=== PATIENT | male | born 1975 | race Caucasian/White ===

== ENCOUNTER 2020-07-30 08:04 | Emergency (ER) | payer MEDICAID, SELFPAY ==
[2020-07-30 08:23] VITALS: BP 135/79; PULSE 89; RESP 16; TEMP 37; O2SAT 97; BMI 31.9
[2020-07-30 08:26] VITALS: TEMP 37
--- NOTE | 2020-07-30 09:21 | CT_ITS ---
EXAMINATION: CT ABDOMEN AND PELVIS WITHOUT CONTRAST CLINICAL INFORMATION: Right-sided pain with question of renal calculi. COMPARISON: None TECHNIQUE: Multidetector volumetric imaging was performed from the superior aspect of the liver through the pubic symphysis. Sagittal and coronal reformatted images were obtained on the technologist's workstation. This CT examination was performed using dose optimization techniques as appropriate, variously including the following: Automated exposure control. Adjustment of mA and/or kV according to patient size (this includes techniques or standardized protocols for targeted exams where dose is matched to indication/reason for exam; i.e. extremities or head). Use of iterative reconstruction technique. DLP: 595 mGy-cm FINDINGS: LUNG BASES: Multiple slightly irregular rounded densities are seen at the lung bases. The best example is probably in the left lower lobe (series 4 image 20). This has slightly irregular borders. There is a pleural-based area in the lingula which appears more like a peripheral consolidation containing air bronchograms (series 3 image 4). Differential diagnosis would include inflammatory, infectious and neoplastic considerations, favor the former. LIVER, GALLBLADDER, AND BILIARY TREE: The liver is normal in size, shape, and attenuation. No focal hepatic lesion or biliary ductal dilatation is present. The gallbladder is unremarkable with no evidence of radiopaque gallstones, gallbladder wall thickening, or obvious pericholecystic inflammatory changes. PANCREAS: Unremarkable. SPLEEN: Unremarkable. ADRENAL GLANDS: Unremarkable. KIDNEYS AND URETERS: The kidneys are normal in size, shape, and attenuation. No hydronephrosis, hydroureter, or calculi seen. No perinephric stranding. BLADDER: Unremarkable. GASTROINTESTINAL TRACT: A small hiatal hernia is present. The small and large bowel are unremarkable. The appendix is unremarkable. ABDOMINAL WALL: No significant hernia is appreciated. LYMPH NODES: No retroperitoneal lymphadenopathy. Phleboliths are noted in the pelvis. VASCULAR: Unremarkable. PELVIC VISCERA: Prostate and seminal vesicles appear normal. OSSEOUS STRUCTURES: Unremarkable. CT/CT abdomen pelvis wo con IMPRESSION: A cause for the patient's right-sided pain is not found and there is no evidence of renal calculi. Multifocal pulmonary masses are present with differential diagnosis as described above. I suspect the most likely etiology is an infectious, possibly even embolic. This does not have the typical appearance of COVID-19 disease. Short term follow up is recommended with a chest CT after a course of antibiotic therapy. This critical result was discussed with DAVID Montes at 10:15 AM on the day of the exam and it was ascertained that the content and urgency of the report was understood at the time of direct communication.
--- NOTE | 2020-07-30 09:39 | ED_ITS ---
HPI - Back Pain/Injury General Chief Complaint: Back Pain/Injury Stated Complaint: back pain Time Seen by Provider: 07/30/20 09:08 Source: patient Mode of arrival: ambulatory Limitations: language barrier ([employer] used) History of Present Illness HPI Narrative: Patient is a 45-year-old male with no significant past medical history complaining of 3 days of right lower back pain that radiates to the front of his abdomen. He states he has never had pain like this before and has never had kidney stones. He also states he has no history of back pain but he does work in a factory lifting heavy objects however he denies any injury. Denies blood in his urine, denies loss of bladder bowels denies numbness ting ling or shooting pain down his legs, denies fevers. Patient states he has been taking ibuprofen around the clock with no relief, last dose was last evening. Related Data Previous Rx's Medication Instructions Recorded levofloxacin 750 mg PO DAILY #7 tab 07/30/20 Allergies Allergy/AdvReac Type Severity Reaction Status Date / Time No Known Allergies Allergy Verified 07/30/20 09:21 Review of Systems Review of Systems: see HPI [facility] Social History Social History Alcohol intake: never Smoking Status: Never smoker Use of substances other than those prescribed or required for medical reasons: No Advance Directives: No Advance Directives Information Provided: Yes Physical Exam Vital Signs: Vital Signs: Last Vital Signs Temp 98.6 F 07/30/20 08:26 Pulse 89 07/30/20 08:23 Resp 16 07/30/20 08:23 BP 135/79 07/30/20 08:23 Pulse Ox 97 07/30/20 08:23 Body Mass Index 31.9 Const: General: cooperative, healthy appearing, comfortable, no acute distress and well developed Orientation/consciousness: patient oriented x3 HENMT: Head: Yes normal to inspection Eyes: General: appearance normal, both eyes and all related structures Neck: Neck: Yes normal visual inspection and Yes full ROM Resp: Effort & Inspection: normal respiratory effort and able to speak in complete sentences GI: Inspection: Yes obesity : General: Yes no CVA tenderness Back/Spine/Pelvis: Back: no CVA tenderness, No erythema, No warmth, No ecchymosis and No back tenderness Cervical Spine: cervical ROM normal and No Cervical spine tenderness Thoracic/Lumbar Spine: thoracic and lumbar spine normal to inspection, thoraco-lumbar ROM normal, straight leg raise negative bilaterally, No bend over test abnormal and No thoracic spinal tenderness Skin: General skin exam: no rashes or lesions noted Neuro: General: patient oriented x3 Extrem: General: Yes normal to inspection Course Course Course Narrative: 45-year-old male with no significant past medical history complaining of right-sided low back pain which radiates to the front of his abdomen. Will get UA, basic labs and CT scan to rule out kidney stones. 10:15am Dr Melvin Mack from [facility] called to discussed findings of abdominal CT, states he sees a multifocal pneumonia but no kidney stones, no hydronephrosis. Suggested treating with antibiotics and having a follow-up chest CT in a couple of weeks through his primary care provider. UA negative. MDM - Back Pain/Injury Lab Data Result diagrams: 07/30/20 09:48 07/30/20 09:48 Labs: Lab Results 07/30/20 07/30/20 07/30/20 Range/Units 09:48 09:48 Unknown WBC 6.6 (4.8-10.8) X10*3/uL RBC 5.72 (4.60-5.80) X10*6/uL Hgb 15.5 (14.0-18.0) g/dl Hct 49.2 (42-52) % MCV 86.0 (80-98) fL MCH 27.1 (27.0-33.0) pg MCHC 31.5 (31.0-36.0) g/dl RDW 13.6 (11.0-16.0) % Plt Count 131 L (160-400) X10*3/uL MPV 8.9 L (9.4-12.4) fL Immature Gran % (Auto) 0.2 (0.0-0.4) % Neut % (Auto) 51.5 (45-73) % Lymph % (Auto) 41.3 H (20-40) % Vance % (Auto) 6.0 (2-11) % Eos % (Auto) 0.8 (0-4) % Baso % (Auto) 0.2 (0-2) % Lymph # (Auto) 2.7 (1.2-4.9) X10*3/uL Vance # (Auto) 0.4 (0.1-1.2) X10*3/uL Eos # (Auto) 0.1 (0.0-0.4) X10*3/uL Baso # (Auto) 0.0 (0.0-0.2) X10*3/uL Abs Immat Gran (auto) 0.01 (0.00-0.03) X10*3/uL Absolute Neuts (auto) 3.4 (2.0-8.3) X10*3/uL Absolute Nucleated RBC 0.000 (0.0-0.012) X10*3/uL Nucleated RBC % (auto) 0.0 (0.0-0.2) /100WBC Sodium 140 (135-145) mmol/L Potassium 5.0 (3.3-5.1) mmol/l Chloride 103 (96-108) mmol/L Carbon Dioxide 30 H (22-29) mmol/L Anion Gap 12 (12-20) BUN 11 (9-16) mg/dL Creatinine 1.02 (0.5-1.4) mg/dL Estim Creat Clear Calc 98.0 Estimated GFR > 60 Random Glucose 112 (60-115) mg/dL Calcium 8.4 (8.4-10.2) mg/dL Urine Color YELLOW Urine Appearance CLEAR Urine pH 6.5 (5.0-8.0) Ur Specific Tillman 1.010 (1.005-1.025) Urine Protein NEG (NEG-TRACE) MG/DL Urine Glucose (UA) NEG (NEG) MG/DL Urine Ketones NEG (NEG) MG/DL Urine Blood NEG (NEG) Urine Nitrite NEG (NEG) Ur Leukocyte Esterase NEG (NEG) Imaging Data CT scan - abdomen: Attestation: I personally reviewed and interpreted this imaging study as follows: Radiologist's impression: [address] [address] [address] Scan Report Signed Patient: Marcos Will GMR#: [id number] : 1975Acct:[id number] Age/Sex: 45 / MADM Date: 07/30/20 Loc: HO.ED Attending Dr: Ordering Physician: LUCIANO REAVES Date of Service: 07/30/20 Procedure(s): CT abdomen pelvis wo con Accession Number(s): [id number] cc: LUCIANO REAVES~ EXAMINATION: CT ABDOMEN AND PELVIS WITHOUT CONTRAST CLINICAL INFORMATION: Right-sided pain with question of renal calculi. COMPARISON: None TECHNIQUE: Multidetector volumetric imaging was performed from the superior aspect of the liver through the pubic symphysis. Sagittal and coronal reformatted images were obtained on the technologist's workstation. This CT examination was performed using dose optimization techniques as appropriate, variously including the following: Automated exposure control. Adjustment of mA and/or kV according to patient size (this includes techniques or standardized protocols for targeted exams where dose is matched to indication/reason for exam; i.e. extremities or head). Use of iterative reconstruction technique. DLP: 595 mGy-cm FINDINGS: LUNG BASES: Multiple slightly irregular rounded densities are seen at the lung bases. The best example is probably in the left lower lobe (series 4 image 20). This has slightly irregular borders. There is a pleural-based area in the lingula which appears more like a peripheral consolidation containing air bronchograms (series 3 image 4). Differential diagnosis would include inflammatory, infectious and neoplastic considerations, favor the former. LIVER, GALLBLADDER, AND BILIARY TREE: The liver is normal in size, shape, and attenuation. No focal hepatic lesion or biliary ductal dilatation is present. The gallbladder is unremarkable with no evidence of radiopaque gallstones, gallbladder wall thickening, or obvious pericholecystic inflammatory changes. PANCREAS: Unremarkable. SPLEEN: Unremarkable. ADRENAL GLANDS: Unremarkable. KIDNEYS AND URETERS: The kidneys are normal in size, shape, and attenuation. No hydronephrosis, hydroureter, or calculi seen. No perinephric stranding. BLADDER: Unremarkable. GASTROINTESTINAL TRACT: A small hiatal hernia is present. The small and large bowel are unremarkable. The appendix is unremarkable. ABDOMINAL WALL: No significant hernia is appreciated. LYMPH NODES: No retroperitoneal lymphadenopathy. Phleboliths are noted in the pelvis. VASCULAR: Unremarkable. PELVIC VISCERA: Prostate and seminal vesicles appear normal. OSSEOUS STRUCTURES: Unremarkable. CT/CT abdomen pelvis wo con IMPRESSION: A cause for the patient's right-sided pain is not found and there is no evidence of renal calculi. Multifocal pulmonary masses are present with differential diagnosis as described above. I suspect the most likely etiology is an infectious, possibly even embolic. This does not have the typical appearance of COVID-19 disease. Short term follow up is recommended with a chest CT after a course of antibiotic therapy. Discharge Plan Discharge Clinical Impression: Multifocal pneumonia Patient Disposition: Home, Self-Care Instructions: Pneumonia (ED) Additional Instructions: As discussed with the warehouse distribution associate, it is imperative you have a follow-up chest CT a week or two after you complete your course of antibiotics. Please arrange this with your primary care provider. As discussed, what was seen on the CT scan is likely pneumonia but we need to be sure and follow-up CT scan after you finish your antibiotics is important. Prescriptions: New levofloxacin 750 mg tablet 750 mg PO DAILY Qty: 7 RF: 0 Referrals: [facility] [Primary Care Provider] - 10 days (Please be sure to follow-up within 2 weeks of finishing your antibiotics for a chest CT scan) Interventions: ED Discharge Assessment Last Done: 07/30/20 10:50 Discharge Date/Time: 07/30/20 11:07
[2020-07-30 09:55] LABS: MANUAL DIFF FLAG NO
[2020-07-30 09:58] LABS: Basophils Percent Auto 0.2 % (0-2); Eosinophils Absolute Auto 0.1 X10*3/uL (0.0-0.4); Eosinophils Percent Auto 0.8 % (0-4); Hematocrit 49.2 % (42-52); Hemoglobin 15.5 g/dl (14.0-18.0); Imm Gran Abs Auto 0.01 X10*3/uL (0.00-0.03); Imm Gran Pct Auto 0.2 % (0.0-0.4); Lymphocytes Absolute Auto 2.7 X10*3/uL (1.2-4.9); Lymphocytes Percent Auto 41.3 % (20-40); Mean Corpuscular HGB Conc 31.5 g/dl (31.0-36.0); Mean Corpuscular Hemoglobin 27.1 pg (27.0-33.0); Mean Platelet Volume 8.9 fL (9.4-12.4); Monocytes Absolute Auto 0.4 X10*3/uL (0.1-1.2); Neutrophils Absolute Auto 3.4 X10*3/uL (2.0-8.3); Neutrophils Percent Auto 51.5 % (45-73); Platelet Count 131 X10*3/uL (160-400); Red Blood Count 5.72 X10*6/uL (4.60-5.80); Red Cell Distribution Width 13.6 % (11.0-16.0); White Blood Count 6.6 X10*3/uL (4.8-10.8)
[2020-07-30] MEDS: Ketorolac Tromethamine 15 MG/ML VIAL IV (10:18)
[2020-07-30 10:20] LABS: Anion Gap 12 (12-20); Blood Urea Nitrogen 11 mg/dL (9-16); Calcium 8.4 mg/dL (8.4-10.2); Carbon Dioxide 30 mmol/L (22-29); Chloride 103 mmol/L (96-108); Estimated Glomerular Filt Rate > 60; Glucose Random 112 mg/dL (60-115); Sodium 140 mmol/L (135-145)
[2020-07-30 11:07] LABS: Glucose Urine UA NEG (NEG); Leukocyte Esterase Urine NEG (NEG); Nitrite Urine NEG (NEG); PH 6.5 (5.0-8.0); Urine Blood NEG (NEG); Urine Ketones NEG (NEG); Urine Protein NEG (NEG-TRACE)
[2020-07-30 11:08] LABS: Appearance Urine CLEAR; Color Urine YELLOW
== END 2020-07-30 11:07 | disposition home or self-care (01) ==
PROVIDERS: Physician Assistant; Emergency Provider Emergency Medicine Emergency Medical Services
DX: J18.8 Other pneumonia, unspecified organism (principal); M54.5 Low back pain
CPT/HCPCS: 36415; 74176; 80048; 81003; 85025; 96374; 99284; J1885

== ENCOUNTER 2020-08-09 09:54 | Outpatient (REF) | payer MEDICAID, SELFPAY ==
--- NOTE | 2020-08-09 | US_ITS ---
EXAMINATION: US RETROPERITONEAL COMPLETE (RENAL) CLINICAL INFORMATION: Dysuria. COMPARISON: CT abdomen and pelvis 07/30/2020 TECHNIQUE: Real-time imaging of the kidneys and bladder. FINDINGS: RIGHT KIDNEY: 11.5 x 4.4 x 4.4 cm (SAG x AP x TRV). The kidney is normal in size, contour, and echogenicity. Renal cortical thickness is normal. No calculi or focal parenchymal lesions. No hydronephrosis. LEFT KIDNEY: 11.7 x 4.7 x 7.6 cm (SAG x AP x TRV). The kidney is normal in size, contour, and echogenicity. Renal cortical thickness is normal. No calculi or focal parenchymal lesions. No hydronephrosis. BLADDER: Well distended and normal. Bilateral ureteral jets are demonstrated. Prevoid bladder volume is 207.8 mL. Postvoid bladder volume is 14.9 mL. PROSTATE: The prostate gland measures 3.36 x 2.99 x 3.40 cm and volume 18.1 mL US/US retroperitoneal comp IMPRESSION: Unremarkable renal ultrasound. Small postvoid residual bladder volume. Normal bilateral ureteral jets.
== END 2020-08-09 09:55 | disposition home or self-care (01) ==
LOC: HO.US 09:54
PROVIDERS: PCP Internal Medicine Geriatric Medicine; Visit Provider Internal Medicine Geriatric Medicine
DX: M54.9 Dorsalgia, unspecified (principal); R30.0 Dysuria
CPT/HCPCS: 76770

== ENCOUNTER 2020-11-08 09:48 | Outpatient (REF) | payer MEDICAID, SELFPAY ==
--- NOTE | ~2020-11-08 | XR_ITS ---
EXAMINATION: XR CHEST CLINICAL INFORMATION: Pneumonia COMPARISON: None TECHNIQUE: 2 views of the chest were obtained. FINDINGS: No significant abnormality is noted involving the heart, lungs, mediastinum, bony thorax or soft tissues. XR/XR chest 2V IMPRESSION: Unremarkable examination.
== END 2020-11-08 09:49 | disposition home or self-care (01) ==
LOC: HO.XRAY 09:48
PROVIDERS: PCP Internal Medicine Geriatric Medicine; Visit Provider Emergency Medicine
DX: J18.9 Pneumonia, unspecified organism (principal)
CPT/HCPCS: 71046

== ENCOUNTER 2021-03-30 08:40 | Outpatient (REF) | payer MEDICAID, SELFPAY ==
[2021-03-30 09:20] LABS: COVID-19 Test Negative (Negative)
== END 2021-03-30 08:41 | disposition home or self-care (01) ==
LOC: HO.LAB 08:40
PROVIDERS: PCP Internal Medicine Geriatric Medicine; Visit Provider Internal Medicine
DX: Z20.822 Contact with and (suspected) exposure to COVID-19 (principal)
CPT/HCPCS: 36415; 87635; C9803

== ENCOUNTER 2021-06-06 19:31 | Emergency (ER) | payer MEDICAID, SELFPAY ==
[2021-06-06 19:42] VITALS: BP 135/73; PULSE 100; RESP 18; TEMP 35.8; O2SAT 98; BMI 32.3
--- NOTE | 2021-06-06 19:46 | ECG_ITS ---
Test Reason : DIZZINESS Blood Pressure : / mmHG Vent. Rate : 088 BPM Atrial Rate : 088 BPM P-R Int : 170 ms QRS Dur : 106 ms QT Int : 352 ms P-R-T Axes : 069 263 027 degrees QTc Int : 425 ms Normal sinus rhythm Right superior axis deviation Pulmonary disease pattern Incomplete right bundle branch block Abnormal ECG No previous ECGs available Referred By: Generic ED Physician Electronically Signed By:JIAN MORRISON MD
[2021-06-06 20:34] VITALS: BP 132/81; PULSE 78; RESP 15; TEMP 36.9; O2SAT 98
--- NOTE | 2021-06-06 20:39 | PC.NURSE ---
Pt alert and oriented x4, calm and cooperative. Pt stats sudden onset of dizziness, nausea, and B/L blurred vision after eating and drinking coffee this afternoon. pt sates all symptoms have resolved at this time. Denies vomiting. Denies pain. Vitals stable. Pt states history of vertigo 3 years ago, denies episode since then, denies taking meds for it at this time. Projector Booth Operator Aubrey used to assess patient due to Amharic speaking only.
--- NOTE | 2021-06-06 20:42 | ED_ITS ---
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 same dizziness slight nausea with blurred vision lasted for few minutes gone by now patient was slightly off balance history of same in the past no headache no chest pain or palpitation patient feeling better at this time no tinnitus Related Data Previous Rx's Medication Instructions Recorded levofloxacin 750 mg tablet 750 mg PO DAILY #7 tab 07/30/20 meclizine 25 mg tablet 25 mg PO TID PRN #20 tab 06/06/21 Allergies Allergy/AdvReac Type Severity Reaction Status Date / Time No Known Allergies Allergy Verified 06/06/21 20:33 Review of Systems Review of Systems: Yes all other systems are reviewed and are negative [facility] Social History Social History Alcohol intake: never Patient Tobacco Use Status: Never used Tobacco Advance Directives: No Advance Directives Information Provided: Yes Physical Exam Vital Signs: Vital Signs: Last Vital Signs Temp 98.4 F 06/06/21 20:34 Pulse 80 06/06/21 20:53 Resp 15 06/06/21 20:34 BP 149/92 H 06/06/21 20:53 Pulse Ox 98 06/06/21 20:34 Body Mass Index 32.3 Appearance: Alert. Oriented X3. No acute distress. Eyes: PERRLA, No Nystagmus ENT: Pharynx normal. Oral Mucosa moist Neck: Normal inspection. Neck supple. CVS: Normal heart rate and rhythm. Pulses normal. Respiratory: No respiratory distress. Equal air entry bilateral, no wheezing/rales/rhonchi Abdomen: Soft and nontender. Bowel sounds are present, no mass palpable, Skin: Skin warm and dry. Normal skin color. Normal skin turgor. Extremities: No lower extremity edema. No calf tenderness Neuro: Oriented X 3. No motor deficit. No sensory deficit.No cerebellar signs , cranial nerves II-XII intact MDM - Dizziness MDM Narrative Medical decision making narrative: Patient with recurrent episode of vertigo as in the past at this time , patient's gait is normal no signs of central dizziness orthostatics normal which are patient home on meclizine ECG Data Attestation: I personally reviewed and interpreted this ECG as follows: Interpretation: Normal sinus rhythm incomplete right bundle-branch block heart rate 88 beats per minute no acute ST T wave changes no acute ischemic Discharge Plan Discharge Clinical Impression: Benign paroxysmal positional vertigo Qualifiers: Laterality: bilateral Qualified Code(s): H81.13 - Benign paroxysmal vertigo, bilateral Patient Disposition: Home, Self-Care Instructions: Benign Paroxysmal Positional Vertigo (ED) Additional Instructions: Care and cautions as advised Take medication for severe dizziness every 8 hours as needed Prescriptions: New meclizine 25 mg tablet 25 mg PO TID PRN (Reason: dizziness) Qty: 20 RF: 0 No Action levofloxacin 750 mg tablet 750 mg PO DAILY Qty: 7 RF: 0
[2021-06-06 20:51] VITALS: BP 133/90; PULSE 73
[2021-06-06 20:52] VITALS: BP 138/96; PULSE 75
[2021-06-06 20:53] VITALS: BP 149/92; PULSE 80
== END 2021-06-06 21:01 | disposition home or self-care (01) ==
PROVIDERS: Emergency Provider Internal Medicine; PCP Internal Medicine Geriatric Medicine
DX: H81.13 Benign paroxysmal vertigo, bilateral (principal); Z79.899 Other long term (current) drug therapy
CPT/HCPCS: 93005; 99283; 99285